=== PATIENT | female | born 1995 | race American Indian/Alaskan Native ===

== ENCOUNTER 2019-07-17 21:35 | Emergency (ER) | payer SELFPAY ==
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
[2019-07-17] MEDS ORDERED: IBUPROFEN 600 MG TAB PO ONE (23:50)
[2019-07-17 23:56] VITALS: BP 121/78
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
== END 2019-07-18 01:49 | disposition home or self-care (01) ==
LOC: ED 21:35
DX: S16.1XXA Strain of muscle, fascia and tendon at neck level, initial encounter (principal); S39.012A Strain of muscle, fascia and tendon of lower back, initial encounter; Z79.1 Long term (current) use of non-steroidal anti-inflammatories (NSAID); V89.2XXA Person injured in unspecified motor-vehicle accident, traffic, initial encounter; Y93.89 Activity, other specified; Y92.488 Other paved roadways as the place of occurrence of the external cause; Y99.8 Other external cause status
CPT/HCPCS: 72040; 72100; 99283

== ENCOUNTER 2021-08-23 20:45 | Emergency (ER) | payer OTHER ==
[2021-08-23] MEDS ORDERED: ACETAMINOPHEN 500 MG TAB PO ONE (21:45)
[2021-08-23 22:08] LABS: Basophils % (Auto) 0.3 % (0.0-1.8); Eosinophils % (Auto) 0.5 % (0.0-4.3); Hemoglobin 12.2 gm/dl (10.1-14.3); Lymphocytes % (Auto) 37.4 % (13.4-35.0); Mean Corpuscular HGB Conc 35 % (30-34); Mean Corpuscular Volume 92 fl (79-97); Monocytes # (Auto) 0.7 K/mm3 (0.0-0.8); Monocytes % (Auto) 9.1 % (0.0-7.3); Platelet Count 300 K/mm3 (140-440)
[2021-08-23 22:17] LABS: Bilirubin,Urine NEG (Negative); Blood,Urine NEG (Negative); Color,Urine Yellow (Yellow)
[2021-08-23 22:18] LABS: Mucus,Urine FEW /HPF; Protein,Urine <15 mg/dL mg/dL (Negative)
[2021-08-23 22:24] LABS: Alanine Aminotransferase 31 units/L (7-56); Albumin 4.5 g/dL (3.9-5); BUN/Creatinine Ratio 13; Blood Urea Nitrogen 10 mg/dL (7-17); Calcium 9.4 mg/dL (8.4-10.2); Hemolysis Index 15
--- NOTE | 2021-08-23 23:31 | Ultrasound Report ---
ULTRASOUND OBSTETRIC Indication: , bleeding Findings: There is a single, living intrauterine . [place]-rump length = 0.71 cm = 5 weeks, 3 day(s). No embryonic cardiac activity was recorded. There are 2 right ovarian cysts which measure 1.7-1.8 cm. Left ovary is unremarkable. Impression: Intrauterine gestational sac with pole measuring 5 weeks 3 days. No embryonic cardiac activity was documented by the conche operator. Signer Name: Dinesh Bekc MD Signed: 08/23/2021 11:26 PM Workstation Name: [id number]
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
[2021-08-24 02:45] VITALS: BP 109/73
== END 2021-08-24 02:30 | disposition home or self-care (01) ==
LOC: ED 20:45
DX: O20.0 Threatened abortion (principal); O34.81 Maternal care for other abnormalities of pelvic organs, first trimester; N83.201 Unspecified ovarian cyst, right side; Z3A.01 Less than 8 weeks gestation of pregnancy
CPT/HCPCS: 36415; 76801; 80053; 81001; 83690; 84702; 85025; 86900; 86901; 99284